=== PATIENT | female | born 1995 | race Caucasian/White ===

== ENCOUNTER 2022-10-28 19:46 | Emergency (ER) | payer MEDICAID, OTHER ==
[~2022-10-28] VITALS: Ht 167.6 cm; Wt 59.0 kg
[2022-10-29] MEDS ORDERED: LORAZEPAM 2MG/ML CPJ IM PRN (08:15)
[2022-10-29] MEDS ORDERED: ZIPRASIDONE MESYLATE 20MG/VIAL IM ONE (08:15)
[2022-10-29 18:13] VITALS: BP 110/72
== END 2022-10-29 18:14 ==
LOC: ER 19:46
DX: R45.851 Suicidal ideations (principal); J45.909 Unspecified asthma, uncomplicated; Z86.59 Personal history of other mental and behavioral disorders; Z13.9 Encounter for screening, unspecified
CPT/HCPCS: 71045; 93005; 96372; 99285; J2060; J3486